=== PATIENT | male | born 1950 | race Caucasian/White ===

== ENCOUNTER 2020-08-20 11:12 | Outpatient (CLI) | payer MEDICARE, OTHER, SELFPAY ==
--- NOTE | 2020-08-20 11:29 | XR_ITS ---
WS: [id number] Lumbar spine, 3 views, 08/20/2020 Clinical Data: LOW BACK PAIN Comparison: None. Findings: No compression fractures or subluxation is seen. No disc space narrowing is seen. The transverse proc esses and SI joints are normal. There is a large amount of fecal material within the colon. XR/XR lumbar spine 2-3V* [id number] Impression: Negative lumbar spine.
== END 2020-08-20 11:13 | disposition home or self-care (01) ==
LOC: RADWPI 11:18
PROVIDERS: PCP Family Medicine; Visit Provider Nurse Practitioner Family
DX: S39.012A Strain of muscle, fascia and tendon of lower back, initial encounter (principal); X58.XXXA Exposure to other specified factors, initial encounter
CPT/HCPCS: 72100

== ENCOUNTER → 2021-04-23 16:28 | Outpatient (BNVA) | payer MEDICARE, OTHER, SELFPAY | PROVIDERS: PCP Family Medicine; Visit Provider Nurse Practitioner Family | DX: Z20.822 Contact with and (suspected) exposure to COVID-19 (principal); J06.9 Acute upper respiratory infection, unspecified | CPT/HCPCS: 87635 ==

== ENCOUNTER → 2021-06-16 09:41 | Outpatient (BNVA) | payer MEDICARE, OTHER, SELFPAY | PROVIDERS: PCP Family Medicine; Visit Provider Urology | DX: N40.0 Benign prostatic hyperplasia without lower urinary tract symptoms (principal); Z12.5 Encounter for screening for malignant neoplasm of prostate; N40.1 Benign prostatic hyperplasia with lower urinary tract symptoms | CPT/HCPCS: 81003; G0103 ==

== ENCOUNTER → 2022-02-17 09:03 | Outpatient (BNVA) | payer MEDICARE, OTHER, SELFPAY | PROVIDERS: PCP Family Medicine; Visit Provider Surgery | DX: Z12.11 Encounter for screening for malignant neoplasm of colon (principal) | CPT/HCPCS: 99202 ==

== ENCOUNTER 2022-03-24 06:04 | Day surgery (SDC) | payer MEDICARE, OTHER, SELFPAY ==
[2022-03-18 14:20] VITALS: BMI 26.4
[2022-03-24 06:24] VITALS: BP 131/87; PULSE 58; RESP 16; TEMP 36.4; O2SAT 96
[2022-03-24] MEDS: sodium chloride 0.9% 1,000 ML 30 ML IV (06:32)
--- NOTE | 2022-03-24 06:54 | PM.HP ---
Providers/Chief Complaint Primary Care Provider: Zaira Gallegos MD History of Present Illness Mikael Serrato is a 71 year old male with a history of colon polyps, in need of a screening colonoscopy. Review of Systems General: Reports: 10 or more systems reviewed and unremarkable except in HPI and below Medications/Allergies Home Medications Medication Instructions Recorded Confirmed Last Taken Type omeprazole 20 mg capsule,delayed 20 mg PO DAILY 04/07/21 03/24/22 03/23/22 History release alprazolam 0.5 mg tablet (Xanax) 0.5 mg PO BEDTIME 06/16/21 03/24/22 03/23/22 History terazosin 10 mg capsule 10 mg PO BEDTIME 06/16/21 03/24/22 03/23/22 History ferrous sulfate 325 mg (65 mg 325 mg PO DAILY 03/18/22 03/24/22 03/23/22 History iron) tablet mecobalamin (vitamin B12) 1,000 1,000 mcg PO DAILY 03/18/22 03/24/22 03/23/22 History mcg chewable tablet (B12 Active) Allergies Allergy/AdvReac Type Severity Reaction Status Date / Time No Known Allergies Allergy Verified 03/24/22 06:23 PFSH Acute PFSH: Medical History (Updated 02/17/22 @ 09:29 by Roddy Patricia DO) BPH loc w urin obs/LUTS Colon polyp Diverticulosis Enlarged prostate GERD (gastroesophageal reflux disease) Insomnia Surgical History No pertinent past surgical history Social History Smoking and tobacco status: never smoked Alcohol intake: current Alcohol intake frequency: holidays/special occasions only Marital status: Current occupational status: retired History of recent travel: Yes Out of country: No Vitals/I&O/Wt Last Vital Signs Temp 97.6 F 03/24/22 06:24 Pulse 58 L 03/24/22 06:24 Resp 16 03/24/22 06:24 BP 131/87 03/24/22 06:24 Pulse Ox 96 03/24/22 06:24 Physical Exam Narrative: General : Patient is well developed , no acute distress, oriented x3 Head : Normal cephalic, a-traumatic. Ears : Pinnae and external canal are normal. Hearing is normal. Eyes : PERRLA, Sclera and injection are normal. No conjunctival discharge. Nose : Mucous membranes are without erythema. Throat : buccal mucosa is normal, gums are without significant recession or hypertrophy. Lungs : Equal chest rise bilaterally, no use of accessory muscles, trachea is midline. Cor : Rate and rhythm are normal. Abdomen : Soft, ND, NT, no g/r/m Extremities : No edema, no cyanosis or clubbing, dorsalis pedis pulses are present bilaterally, non-tender to palpation of calves. Upper extremities are normal bilaterally. Back : non-tender to palpation, no CVA tenderness. Neuro : CN II - XII intact, Upper and lower extremities have equal and full strength A&P Assessment and plan (1) Screening for colon cancer: Status: Acute Plan Colonoscopy The risks and benefits of the procedure, including bleeding, infection, intestinal perforation requiring surgery, missed lesion, or explained to the patient. He is understanding of the risks and wishes to proceed. Attestations Medical Necessity Statement*: Patient will be discharged Coding Level of Care Code Acute Estate Attorney for [facility] Fwd Diagnoses Screening for colon cancer Z12.11
--- NOTE | 2022-03-24 06:57 | ANES.PREANE2 ---
Pre-Anesthetic Assessment Height/Weight: Height 1.83 m Weight 88.451 kg Temp Pulse Resp BP Pulse Ox 97.6 F 58 L 16 131/87 96 03/24/22 06:24 03/24/22 06:24 03/24/22 06:24 03/24/22 06:24 03/24/22 06:24 Preop Diagnosis: screening Operation Date: 03/24/22 07:30 Proposed Procedures p Colonoscopy 05911,z12.11(Not Applicable) - Roddy Patricia DO Familial anesthetic complications: none Was Beta Maciel taken within 24 hours: N/A Was Clonidine taken within 24 hours: N/A Last intake: Intake Last Liquid Date 03/23/22 Last Liquid Time 22:00 Last Solid Date 03/22/22 Last Solid Time 19:30 Social No alcohol and No tobacco Exam alert and oriented x 3 Airway Submandibular: within normal limits Cervical ROM: within normal limits Mallampati: Class I Dentition: full History/ROS No significant history except as noted GI Hiatal Hernia Anesthetic Plan ASA status: 2 Anesthesia: Anesthesia Evaluation and MAC Risk of > 500 ml blood loss (7ml/kg in children): No Medications/Allergies Home Medications Medication Instructions Recorded Confirmed Last Taken Type omeprazole 20 mg capsule,delayed 20 mg PO DAILY 04/07/21 03/24/22 03/23/22 History release alprazolam 0.5 mg tablet (Xanax) 0.5 mg PO BEDTIME 06/16/21 03/24/22 03/23/22 History terazosin 10 mg capsule 10 mg PO BEDTIME 06/16/21 03/24/22 03/23/22 History ferrous sulfate 325 mg (65 mg 325 mg PO DAILY 03/18/22 03/24/22 03/23/22 History iron) tablet mecobalamin (vitamin B12) 1,000 1,000 mcg PO DAILY 03/18/22 03/24/22 03/23/22 History mcg chewable tablet (B12 Active) Allergies Allergy/AdvReac Type Severity Reaction Status Date / Time No Known Allergies Allergy Verified 03/24/22 06:23 Current Medications Generic Name Dose Route Start Last Admin Trade Name Freq PRN Reason Stop Dose Admin Sodium Chloride 1,000 mls @ 30 mls/hr 03/24/22 06:15 03/24/22 06:32 Sodium Chloride 0.9% IV 03/25/22 06:14 30 mls/hr .Q24H LYNNETTE Administration PFSH Anesthesia Medical History (Updated 02/17/22 @ 09:29 by Roddy Patricia DO) BPH loc w urin obs/LUTS Colon polyp Diverticulosis Enlarged prostate GERD (gastroesophageal reflux disease) Insomnia Surgical History No pertinent past surgical history Social History Smoking and tobacco status: never smoked Alcohol intake: current Alcohol intake frequency: holidays/special occasions only Marital status: Current occupational status: retired History of recent travel: Yes Out of country: No Data Anesthesia Cardiac Studies: No Data to Display
[2022-03-24 07:40] VITALS: BP 115/73; PULSE 50; RESP 17; TEMP 36.1; O2SAT 95
[2022-03-24 07:50] VITALS: BP 113/72; PULSE 48; RESP 18; O2SAT 94
[2022-03-24 08:10] VITALS: BP 120/80; PULSE 59; RESP 16; O2SAT 96
--- NOTE | 2022-03-24 08:16 | ANE.PACU2 ---
Inpatient post-anesthesia follow up: Airway intact: Yes Vital signs: Temperature 97.0 F Pulse Rate 48 Respiratory Rate 18 Blood Pressure 113/72 Pulse Oximetry 94 Oxygen Delivery Me thod Room Air Oxygen Flow Rate Fraction of Inspir ed Oxygen Hydration adequate: Yes Nausea and vomiting: No Pain level: 1 Mental status: Baseline
== END 2022-03-24 08:30 | disposition home or self-care (01) ==
PROVIDERS: PCP Family Medicine; Visit Provider Surgery
PROC: 0DJD8ZZ Inspection of Lower Intestinal Tract, Via Natural or Artificial Opening Endoscopic (ICD-10-PCS; CPT 45378; principal; 2022-03-24 07:30)
DX: Z12.11 Encounter for screening for malignant neoplasm of colon (principal); Z86.010 Personal history of colon polyps; K57.30 Diverticulosis of large intestine without perforation or abscess without bleeding; N40.1 Benign prostatic hyperplasia with lower urinary tract symptoms; N13.8 Other obstructive and reflux uropathy; K21.9 Gastro-esophageal reflux disease without esophagitis
CPT/HCPCS: G0121; J2704; J3490; J7030

== ENCOUNTER → 2022-07-22 15:06 | Outpatient (BNVA) | payer MEDICARE, OTHER, SELFPAY | PROVIDERS: PCP Family Medicine; Visit Provider Urology | DX: N40.1 Benign prostatic hyperplasia with lower urinary tract symptoms (principal) | CPT/HCPCS: 51741; 51798; 81003; 99213 ==

== ENCOUNTER → 2023-05-18 15:20 | Outpatient (BNVA) | payer MEDICARE, OTHER, SELFPAY | PROVIDERS: PCP Family Medicine; Visit Provider Nurse Practitioner Family | DX: L57.0 Actinic keratosis (principal); D36.14 Benign neoplasm of peripheral nerves and autonomic nervous system of thorax; L81.4 Other melanin hyperpigmentation; D22.5 Melanocytic nevi of trunk; L85.3 Xerosis cutis; L57.8 Other skin changes due to chronic exposure to nonionizing radiation | CPT/HCPCS: 17000; 17003; 99213 ==

== ENCOUNTER → 2024-05-22 12:54 | Outpatient (BNVA) | payer MEDICARE, OTHER, SELFPAY | PROVIDERS: PCP Family Medicine; Visit Provider Nurse Practitioner Family | DX: L57.0 Actinic keratosis (principal); D36.14 Benign neoplasm of peripheral nerves and autonomic nervous system of thorax; L81.4 Other melanin hyperpigmentation; D22.5 Melanocytic nevi of trunk; L85.3 Xerosis cutis; L57.8 Other skin changes due to chronic exposure to nonionizing radiation; L82.0 Inflamed seborrheic keratosis | CPT/HCPCS: 17000; 17110; 99213 ==

== ENCOUNTER → 2025-06-12 13:55 | Outpatient (BNVA) | payer MEDICARE, OTHER, SELFPAY | PROVIDERS: PCP Family Medicine; Visit Provider Nurse Practitioner Family | DX: L57.8 Other skin changes due to chronic exposure to nonionizing radiation (principal); L81.4 Other melanin hyperpigmentation; L82.1 Other seborrheic keratosis; L57.0 Actinic keratosis | CPT/HCPCS: 17000; 99213 ==